=== PATIENT | female | born 1995 | race African-American/Black ===

== ENCOUNTER 2018-06-13 14:39 | Observation (INO) ==
[2018-06-13 15:43] LABS: Basophils % 0.2 % (0.0-0.8); Eosinophils % 0.2 % (0.00-10.9); Hematocrit 35.6 VOL% (35.7-47.0); Hemoglobin 11.5 GM/DL (12.0-16.0); Immature Granulocytes % 0.4 %; Immature Granulocytes Absolute 0.07 #; Lymphocytes # 1.6 10*3/uL (1.4-4.0); Lymphocytes % 9.8 % (21.3-54.2); Mean Corpuscular HGB Conc 32.3 GM/DL (32-36); Mean Corpuscular Hemoglobin 22 PG (27-34); Mean Corpuscular Volume 68.3 FL (87-102); Mean Platelet Volume 9.9 FL (9.6-12.0); Monocytes # 0.9 10*3/uL (0.11-0.8); Monocytes % 5.4 % (1.7-12.7); Neutrophils # 13.8 10*3/uL (1.4-7.4); Platelet Count 338 T/CUMM (130-400); Red Blood Count 5.21 MC/CUMM (3.8-5.5); White Blood Count 16.4 T/CUMM (4-12)
[2018-06-13 16:14] LABS: Albumin 3.5 G/DL (3.4-5.0); Bilirubin,Total 0.7 MG/DL (0.2-1.0); Calcium 9.4 MG/DL (8.5-10.1); Osmolality,Calculated 272.5 MOS/KG (273-304); Potassium 3.9 MMOL/L (3.5-5.1); Total Protein 8.4 G/DL (6.4-8.3)
[2018-06-13 16:48] LABS: Apearance,Urine Slightly Hazy (Clear); Bacteria,Urine Occasional /HPF (Few); Bilirubin,Urine Negative (Negative); Blood, Urine Moderate mg/dL (Negative); Glucose,Urine (UA) Negative (Negative); Ketones,Urine 80 mg/dL (Negative); Mucus,Urine Occasional /LPF (Occasional); Nitrite,Urine Negative (Negative); Protein,Urine Negative; RBC,Urine 2 /HPF (0-4); Squamous Epithelial Cell,Urine Occasional /HPF (0-10); Urine Color Yellow (Yellow); Urine Specific Gravity 1.023 (1.001-1.035); Urine Urobilinogen < 2.0 EU/DL (0.2-1.0); WBC,Urine 5 /HPF (0-6)
[2018-06-13] MEDS ORDERED: SODIUM CHLORIDE 0.9% 1,000 ML IV STA (17:31)
[2018-06-13] MEDS ORDERED: ONDANSETRON 4 MG/2 ML VIAL IV STA (17:31)
[2018-06-13] MEDS ORDERED: ONDANSETRON 4 MG/2 ML VIAL ONE ×2 (17:54→20:01)
[2018-06-13] MEDS ORDERED: MORPHINE 4 MG/1 ML VIAL IV STA (18:34)
[2018-06-13] MEDS ORDERED: MORPHINE 4 MG/1 ML VIAL ONE (18:36)
[2018-06-13] MEDS: ONDANSETRON 4 MG/2 ML VIAL IV PRN ×2 (20:05→23:18)
[2018-06-13] MEDS ORDERED: ACETAMINOPHEN 325 MG TABLET PO PRN (20:07)
[2018-06-13] MEDS ORDERED: PROMETHAZINE 25 MG/1 ML VIAL IM PRN (20:07)
[2018-06-13] MEDS ORDERED: ONDANSETRON 4 MG/2 ML VIAL IV PRN (20:07)
[2018-06-13] MEDS: PIPERACILLIN/TAZOBACTAM 3,375 MG in SODIUM CHLORIDE 0.9% 100 ML IV SCH (21:56)
[2018-06-13] MEDS: LACTATED RINGERS 1,000 ML IV SCH (21:57)
[2018-06-14] MEDS: PIPERACILLIN/TAZOBACTAM 3,375 MG in SODIUM CHLORIDE 0.9% 100 ML IV SCH ×3 (04:44→20:32)
[2018-06-14] MEDS: LACTATED RINGERS 1,000 ML IV SCH ×5 (04:45→19:00)
[2018-06-14] MEDS: MORPHINE 4 MG/1 ML VIAL IV PRN ×4 (04:47→22:09)
[2018-06-14] MEDS ORDERED: LIDOCAINE 1%/EPI INJ 20 ML VIAL ONE (07:32)
[2018-06-14] MEDS ORDERED: TISSUE ADHESIVE 1 EACH APPLICATOR TOP ONE (07:32)
[2018-06-14] MEDS: PANTOPRAZOLE 40 MG VIAL IV SCH ×2 (07:37→12:34)
[2018-06-14] MEDS ORDERED: SEVOFLURANE 1 UNIT/15 MINUTE INH ONE (09:22)
[2018-06-14] MEDS ORDERED: PROPOFOL 200 MG/20 ML VIAL IV ONE (09:22)
[2018-06-14] MEDS ORDERED: ONDANSETRON 4 MG/2 ML VIAL ONE ×2 (09:23→09:52)
[2018-06-14] MEDS ORDERED: MIDAZOLAM 2 MG/2 ML VIAL ONE (09:23)
[2018-06-14] MEDS ORDERED: KETOROLAC 30 MG/1 ML VIAL ONE (09:23)
[2018-06-14] MEDS ORDERED: GLYCOPYRROLATE 0.4 MG/2 ML VIAL ONE (09:23)
[2018-06-14] MEDS ORDERED: ACETAMINOPHEN 1,000 MG/100 ML VIAL IV ONE (09:23)
[2018-06-14] MEDS ORDERED: NEOSTIGMINE 10 MG/10 ML VIAL ONE (09:24)
[2018-06-14] MEDS ORDERED: LACTATED RINGERS 1,000 ML IV ONE (09:24)
[2018-06-14] MEDS ORDERED: ROCURONIUM 100 MG/10 ML VIAL IV ONE (09:24)
[2018-06-14] MEDS ORDERED: ONDANSETRON 4 MG/2 ML VIAL IV PRN (09:49)
[2018-06-14] MEDS ORDERED: HYDROmorphone 2 MG/1 ML VIAL IV PRN (09:49)
[2018-06-14] MEDS ORDERED: HYDROmorphone 2 MG/1 ML VIAL ONE (09:52)
[2018-06-14] MEDS: ONDANSETRON 4 MG/2 ML VIAL IV PRN (15:15)
[2018-06-15] MEDS: MORPHINE 4 MG/1 ML VIAL IV PRN ×2 (02:19→08:30)
[2018-06-15] MEDS: PIPERACILLIN/TAZOBACTAM 3,375 MG in SODIUM CHLORIDE 0.9% 100 ML IV SCH ×2 (05:54→12:34)
[2018-06-15 06:24] LABS: Basophils % 0.1 % (0.0-0.8); Hematocrit 30.7 VOL% (35.7-47.0); Hemoglobin 9.9 GM/DL (12.0-16.0); Immature Granulocytes % 0.5 %; Immature Granulocytes Absolute 0.09 #; Lymphocytes # 1.5 10*3/uL (1.4-4.0); Lymphocytes % 8.8 % (21.3-54.2); Mean Corpuscular HGB Conc 32.2 GM/DL (32-36); Mean Corpuscular Hemoglobin 22 PG (27-34); Mean Corpuscular Volume 67.9 FL (87-102); Monocytes # 1.5 10*3/uL (0.11-0.8); Monocytes % 9.2 % (1.7-12.7); Neutrophils # 13.5 10*3/uL (1.4-7.4); Neutrophils % 81.4 % (38.7-73.9); Platelet Count 279 T/CUMM (130-400); Red Blood Count 4.52 MC/CUMM (3.8-5.5); Red Cell Distribution Width 13.4 % (9.3-17.3); White Blood Count 16.7 T/CUMM (4-12)
[2018-06-15 06:37] LABS: Albumin 2.7 G/DL (3.4-5.0); Bilirubin,Total 0.4 MG/DL (0.2-1.0); Calcium 8.9 MG/DL (8.5-10.1); Osmolality,Calculated 273.5 MOS/KG (273-304); Potassium 3.7 MMOL/L (3.5-5.1); Total Protein 6.8 G/DL (6.4-8.3)
[2018-06-15] MEDS: PANTOPRAZOLE 40 MG VIAL IV SCH (08:30)
[2018-06-15 11:47] VITALS: BP 125/68
[2018-06-16] MEDS ORDERED: PANTOPRAZOLE 40 MG TABLET PO SCH (09:00)
== END 2018-06-15 13:13 | disposition home or self-care (01) ==
LOC: N.EDINP 14:39 → N.ED 14:39 → N.3E 20:07
PROVIDERS: ADMIT Surgery; ATTEND Surgery
PROC: LAPCHOL (2018-06-14 08:07)